=== PATIENT | female | born 2005 | race African-American/Black ===

== ENCOUNTER 2025-03-17 12:54 | Emergency (ER) | payer MEDICAID, SELFPAY ==
[2025-03-17 13:17] VITALS: BP 137/87; PULSE 113; RESP 18; TEMP 36.6; O2SAT 99; BMI 38.3
--- NOTE | 2025-03-17 13:20 | ED.GENADULT ---
HPI - General Adult General Chief complaint: Dental/Oral Stated complaint: dental pain Time Seen by Provider: 03/17/25 13:19 Source: patient Mode of arrival: ambulatory Limitations: no limitations History of Present Illness ED Provider: Saad Rosales HPI narrative: 19 yold female presents to the ED for left upper dental pain for the past couple of days. patient denies any facial swelling, tognue swelling, drooling, change in voice, or recent dental work. Related Data Previous Rx's ?Medication ?Instructions ?Recorded amoxicillin 875 mg-potassium 1 tab PO Q12H 10 days #20 tabs 03/17/25 clavulanate 125 mg tablet naproxen 500 mg tablet 500 mg PO BID PRN pain #14 tabs 03/17/25 Allergies Allergy/AdvReac Type Severity Reaction Status Date / Time No Known Allergies Allergy Verified 03/17/25 13:17 Review of Systems Review of Systems: left upper dental pain Yes all other systems are reviewed and are negative PMFSH Social History Social History Advance Directives: No Advance Directives Information Provided: Yes Do you have a plan to hurt others: No Plan Physical Exam ED Vital Signs: Vital Signs - 24 hr 03/17/25 13:17 Temperature 97.9 F Pulse Rate 113 H Respiratory Rate 18 Blood Pressure 137/87 Pulse Oximetry 99 Oxygen Delivery Method Room Air BMI result Body Mass Index 38.3 Const General: cooperative, healthy appearing, comfortable, no acute distress, well developed and alert Orientation/consciousness: patient oriented x3 HENMT Other: negative for facial swelling, drooling, change in voice, or trismus Head: Yes normal to inspection, Yes No palpable skull fracture present, Yes normocephalic, Yes atraumatic and No abrasion Ears: hearing grossly normal bilaterally, external ears normal, TM's normal bilaterally, TM normal on the right, TM normal on the left, EAC's normal, mastoids normal and no periauricular adenopathy Teeth image:  1. positive for tenderness on palpation and yellow collection. negative for gum swelling, trisums, redness, or drooling. Eyes General: appearance normal, both eyes and all related structures Neck Neck: Yes normal visual inspection, Yes full ROM, Yes no lymphadenopathy, Yes no meningeal signs, Yes trachea midline, Yes supple, No anterior neck swelling and No tender Chest Chest palpation & inspection: normal inspection of the chest and normal palpation of entire chest wall Resp Effort & Inspection: normal respiratory effort and able to speak in complete sentences Auscultation: clear to auscultation bilaterally Cardio Jugular venous distension: no JVD Heart sounds: S1 normal heart sound present and S2 normal heart sound present GI Inspection: Yes normal to inspection Palpation (GI): Soft to palpation, not firm, nontender, no guarding and not rigid General: Yes no CVA tenderness Back/Spine/Pelvis Back: no CVA tenderness and No warmth Skin General skin exam: no rashes or lesions noted, elasticity normal and turgor normal Neuro General: patient oriented x3, gait normal, tone normal, moves all extremities, Normal light touch and pain sensation, no meningeal signs, no focal motor deficits, CN's II-XI intact bilaterally and normal sensation to monofilament Extrem General: Yes normal to inspection, Yes full ROM and Yes capillary refill normal Psych Appearance: grossly normal, well kempt and not disheveled Medical Decision Making Medical Decision Making MDM Narrative: 19-year-old female presents to ED for left upper dental pain for the past 3-4 days. Patient denies any drooling, change in voice, neck swelling, chest pain, coughing up blood, recent dental work. Physical exam collar for left upper molar crack with some yellow pus collection indicates tooth infection. Patient will need antibiotics. Negative for trismus. Not suspecting retropharyngeal abscess, peritonsillar abscess, Floyd's angina, or any other life-threatening etiology. Patient will be discharged antibiotics. Patient informed to return to the ED immediately and explained worrisome signs. Differential Diagnosis Differential Diagnoses: The differential diagnosis associated with the presentation includes (Dental infection, cracked tooth) Admission/Observation Consideration of admission/observation: Escalation of care including admission/observation considered Independent Historian Clinical information obtained from an independent historian. History obtained from or confirmed by: Other (Patient is) Prescription Management I considered prescription management with: Pain Medication and Antibiotic Discharge Plan Discharge Clinical Impression: Toothache Patient Disposition: Home, Self-Care Instructions: Toothache (ED) Additional Instructions: Recommend follow-up with primary care provider and dentist. You will be discharged with antibiotics for tooth infection. Return to the ED immediately for any facial swelling, drooling, change in voice, neck swelling, inability tolerate solid food/liquid, or any other concerning symptoms. Prescriptions: New amoxicillin-pot clavulanate 875-125 mg tablet 1 tab PO Q12H 10 Days Qty: 20 0RF naproxen 500 mg tablet 500 mg PO BID PRN (Reason: pain) Qty: 14 0RF Stand Alone Forms: Work/School Release Interventions: ED Discharge Assessment Last Done: 03/17/25 13:59 Discharge Date/Time: 03/17/25 13:59 Print Language: Luxembour[place]
[2025-03-17 13:59] VITALS: BP 133/88; PULSE 101; RESP 18; TEMP 36.7; O2SAT 98
== END 2025-03-17 13:59 | disposition home or self-care (01) ==
LOC: HO.ED 13:40
PROVIDERS: Emergency Provider Emergency Medicine Emergency Medical Services
DX: K08.89 Other specified disorders of teeth and supporting structures (principal)
CPT/HCPCS: 99282; 99283